=== PATIENT | male | born 1940 | race Caucasian/White ===

== ENCOUNTER 2017-12-21 09:54 | Inpatient (IN) | payer OTHER ==
[~2017-12-21] VITALS: Ht 167.6 cm; Wt 76.4 kg
[~2017-12-21 09:54] MED LIST: LIPITOR40 MG PO; METP PO
[2017-12-21 10:15] VITALS: Ht 167.6 cm; Wt 76.4 kg
[2017-12-21 10:53] LABS: BASOPHIL % 1.5 % (0-2); PLATELET COUNT 181 x10^3mcL (130-400)
[2017-12-21 10:56] LABS: RED CELL DISTRIBUTION WIDTH 14.7 % (11.5-14.5)
[2017-12-21 11:04] LABS: microscopic required? NO
[2017-12-21 11:10] LABS: CALCIUM 8.8 mg/dL (8.5-10.1); CARBON DIOXIDE 27.4 mmol/L (21-32); CHLORIDE SERUM 105 mmol/L (98-107); GLUCOSE SERUM 103 mg/dL (74-106); POTASSIUM SERUM 3.8 mmol/L (3.5-5.1); SODIUM SERUM 143 mmol/L (136-145)
[2017-12-21 11:11] LABS: UA SPECIFIC GRAVITY <=1.005 (1.005-1.035); urine erythrocyte NEGATIVE (NEGATIVE)
[2017-12-21 11:14] LABS: ALKALINE PHOSPHATASE 64 U/L (46-116); ALT/SGPT 31 U/L (16-63); AST/SGOT 24 U/L (15-37); BILIRUBIN TOTAL 0.91 mg/dL (0.20-1.00); TOTAL PROTEIN, SERUM 7.6 g/dL (6.4-8.2)
[2017-12-21 13:03] LABS: T3 TOTAL 0.94 ng/mL
[2017-12-21 13:17] LABS: FREE T4 0.98 ng/dL (0.76-1.46); FREE THYROXINE INDEX 2.3 ug/dL (1.4-4.5); T4(THYROXINE) 7.4 ug/dL (4.7-13.3)
[2017-12-21 13:20] VITALS: BP 128/58
[2017-12-21] MEDS ORDERED: GOOD SENSE ASPI81 M3 PO (14:18)
[2017-12-21 14:51] LABS: MAGNESIUM 2.1 mg/dL (1.8-2.4); PHOSPHOROUS 3.2 mg/dL (2.5-4.9)
[2017-12-21 14:53] LABS: CHOLESTEROL/HDL RATIO 3.5
[2017-12-21 17:00] VITALS: BP 117/51
[2017-12-21 19:50] VITALS: BP 121/59
[2017-12-21 19:56] VITALS: BP 106/54
[2017-12-22 04:22] VITALS: BP 112/53
[2017-12-22 06:26] LABS: CALCIUM 8.9 mg/dL (8.5-10.1); CARBON DIOXIDE 27.4 mmol/L (21-32); CHLORIDE SERUM 108 mmol/L (98-107); CREATININE SERUM 0.9 mg/dL (0.7-1.3); GLUCOSE SERUM 89 mg/dL (74-106); POTASSIUM SERUM 4.3 mmol/L (3.5-5.1); SODIUM SERUM 145 mmol/L (136-145)
[2017-12-22 06:51] LABS: PLATELET COUNT 174 x10^3mcL (130-400)
[2017-12-22 06:58] LABS: BASOPHIL % 2.4 % (0-2); RED CELL DISTRIBUTION WIDTH 14.6 % (11.5-14.5)
[2017-12-22 08:52] VITALS: BP 119/68
[2017-12-22 09:15] VITALS: BP 124/60
[2017-12-22 12:05] VITALS: BP 132/59
[2017-12-22 13:27] VITALS: BP 132/59
== END 2017-12-22 14:41 | disposition home or self-care (01) | DRG 69 ==
LOC: ED 09:54 → DU 11:44
PROVIDERS: Emergency Medicine; Internal Medicine
DX: G45.9 Transient cerebral ischemic attack, unspecified (principal); E78.00 Pure hypercholesterolemia, unspecified; R73.03 Prediabetes; Z79.899 Other long term (current) drug therapy; Z79.82 Long term (current) use of aspirin; Z86.73 Personal history of transient ischemic attack (TIA), and cerebral infarction without residual deficits; Z82.49 Family history of ischemic heart disease and other diseases of the circulatory system; Z91.19 Patient's noncompliance with other medical treatment and regimen
CPT/HCPCS: 83880; 84439; J1644; Q0092

== ENCOUNTER 2018-05-07 10:35 | Inpatient (IN) | payer OTHER ==
[~2018-05-07] VITALS: Ht 165.1 cm; Wt 69.9 kg
[~2018-05-07 10:35] MED LIST changes: +GOOD SENSE ASPI81 M3 PO
[2018-05-07 10:44] VITALS: Ht 165.1 cm; Wt 69.9 kg
[2018-05-07 11:30] LABS: BASOPHIL % 1.1 % (0-2); PLATELET COUNT 193 x10^3mcL (130-400); RED CELL DISTRIBUTION WIDTH 14.1 % (11.5-14.5)
[2018-05-07 11:41] LABS: CALCIUM 9.1 mg/dL (8.5-10.1); CARBON DIOXIDE 32.4 mmol/L (21-32); CHLORIDE SERUM 101 mmol/L (98-107); CREATININE SERUM 0.9 mg/dL (0.7-1.3); GLUCOSE SERUM 101 mg/dL (74-106); SODIUM SERUM 140 mmol/L (136-145)
[2018-05-07 11:45] LABS: ALBUMIN 4.2 g/dL (3.4-5.0); ALKALINE PHOSPHATASE 67 U/L (46-116); ALT/SGPT 29 U/L (16-63); AST/SGOT 21 U/L (15-37); BILIRUBIN TOTAL 0.69 mg/dL (0.20-1.00); MAGNESIUM 2.2 mg/dL (1.8-2.4); TOTAL PROTEIN, SERUM 7.9 g/dL (6.4-8.2); TRIGLYCERIDES 77 mg/dL (<150)
[2018-05-07 11:47] LABS: CHOLESTEROL 292 mg/dL (<200); CHOLESTEROL/HDL RATIO 3.8; HDL CHOLESTEROL 77 mg/dL (40-60)
[2018-05-07] MEDS ORDERED: LIPI20 PO (13:59)
[2018-05-07 14:30] LABS: FREE T4 0.99 ng/dL (0.76-1.46); FREE THYROXINE INDEX 3.1 ug/dL (1.4-4.5); T4(THYROXINE) 8.4 ug/dL (4.7-13.3)
[2018-05-07 14:32] LABS: T3 TOTAL 1.15 ng/mL
[2018-05-07 14:34] LABS: microscopic required? NO
[2018-05-07 15:01] LABS: AMPHETAMINE QUAL UR NONE DETECTED (See below)
[2018-05-07 15:05] VITALS: BP 138/68
[2018-05-07 15:51] LABS: urine erythrocyte NEGATIVE (NEGATIVE)
[2018-05-07 17:00] VITALS: BP 122/65
[2018-05-07 20:59] VITALS: BP 108/50
[2018-05-08 05:54] VITALS: BP 123/60
[2018-05-08 07:23] LABS: CALCIUM 9.1 mg/dL (8.5-10.1); CARBON DIOXIDE 30.5 mmol/L (21-32); CHLORIDE SERUM 103 mmol/L (98-107); CREATININE SERUM 0.9 mg/dL (0.7-1.3); GLUCOSE SERUM 93 mg/dL (74-106); SODIUM SERUM 140 mmol/L (136-145)
[2018-05-08 07:24] LABS: PLATELET COUNT 180 x10^3mcL (130-400); RED CELL DISTRIBUTION WIDTH 13.7 % (11.5-14.5)
[2018-05-08 07:25] LABS: BASOPHIL % 2.2 % (0-2)
[2018-05-08 08:20] VITALS: BP 125/70
[2018-05-08 12:40] VITALS: BP 110/65
[2018-05-08 15:52] VITALS: BP 110/65
[2018-05-08 16:10] VITALS: BP 126/61
[2018-05-09 05:47] LABS: RAPID PLASMA REAGIN Non Reactive (Non Reactive)
== END 2018-05-08 20:21 | disposition home or self-care (01) | DRG 69 ==
LOC: ED 10:35 → DU 13:42
PROVIDERS: Emergency Medicine; Internal Medicine; ADMIT Internal Medicine
DX: G45.9 Transient cerebral ischemic attack, unspecified (principal); G93.41 Metabolic encephalopathy; R20.0 Anesthesia of skin; F32.9 Major depressive disorder, single episode, unspecified; E78.5 Hyperlipidemia, unspecified; Z68.25 Body mass index [BMI] 25.0-25.9, adult; Z86.73 Personal history of transient ischemic attack (TIA), and cerebral infarction without residual deficits
CPT/HCPCS: 83880; 84439